=== PATIENT | male | born 2000 | race Two or more races ===

== ENCOUNTER 2023-07-04 00:39 | Emergency (ER) | payer MEDICAID, OTHER ==
[~2023-07-04] VITALS: Ht 172.7 cm; Wt 60.3 kg
[2023-07-04 00:55] VITALS: TEMP 98
[2023-07-04] MEDS ORDERED: IBUPROFEN 400 MG TABLET PO ONE (01:00)
[2023-07-04] MEDS ORDERED: IBUPROFEN 400 MG TABLET ONE (01:32)
[2023-07-04] MEDS: IBUPROFEN 400 MG TABLET PO ONE ×2 (01:32→01:42)
[2023-07-04 02:34] VITALS: BP 137/88; O2SAT 98
== END 2023-07-04 02:34 | disposition home or self-care (01) ==
LOC: ER 00:42
DX: S20.211A Contusion of right front wall of thorax, initial encounter (principal); V89.2XXA Person injured in unspecified motor-vehicle accident, traffic, initial encounter; Y93.89 Activity, other specified; Y92.89 Other specified places as the place of occurrence of the external cause; Y99.8 Other external cause status
CPT/HCPCS: 71100-TC

== ENCOUNTER 2024-01-28 23:49 | Emergency (ER) | payer SELFPAY ==
[~2024-01-28] VITALS: Ht 172.7 cm; Wt 70.3 kg
[2024-01-29 01:45] VITALS: BP 129/76; TEMP 98.6; O2SAT 98
== END 2024-01-29 01:47 | disposition home or self-care (01) ==
LOC: ER 23:51
DX: S93.401A Sprain of unspecified ligament of right ankle, initial encounter (principal); W18.30XA Fall on same level, unspecified, initial encounter; Y93.67 Activity, basketball; Y92.89 Other specified places as the place of occurrence of the external cause; Y99.8 Other external cause status
CPT/HCPCS: 73610-TC